=== PATIENT | male | born 1970 | race Caucasian/White ===

== ENCOUNTER → 2021-08-23 14:49 | Outpatient (BNVA) | payer OTHER, SELFPAY | PROVIDERS: Visit Provider Internal Medicine | DX: S33.6XXA Sprain of sacroiliac joint, initial encounter (principal); W17.89XA Other fall from one level to another, initial encounter | CPT/HCPCS: 99203 ==

== ENCOUNTER → 2021-09-05 12:49 | Outpatient (BNVA) | payer OTHER, SELFPAY | PROVIDERS: Visit Provider Internal Medicine | DX: S33.6XXA Sprain of sacroiliac joint, initial encounter (principal); W17.89XA Other fall from one level to another, initial encounter | CPT/HCPCS: 99213 ==

== ENCOUNTER 2021-09-24 10:00 | Outpatient (RCR) | payer OTHER, SELFPAY ==
--- NOTE | 2021-09-10 15:46 | MHC.PT.EP ---
[facility] [place] Office [place] Office [place] [facility] [address] Susan Marie [address] [phone] F: [phone] F: [phone] F: [phone] F: [phone] Physical Therapy Plan of Care Date of Evaluation: Date of Surgery: N/A Diagnosis: L SI joint pain Assessment: Pt is a pleasant 51yo M who presents to PT with L SI/low back pain. He presents to PT with current impairments in pain, decreased lumbar ROM, decreased core stabilization, decreased hip/glute strength, decreased muscle length impaired posture, and poor body mechanics. He is TTP throughout lumbar vertebrae, L lumbar PS, and L QL. He had relief of symptoms with gentle long axis distraction. He is limited functionally by sit<>stand transitions, walking, bending, and laying flat. He is an excellent candidate for skilled PT in order to address current impairments to facilitate return to PLOF. He will be seen 1x/week for 4 weeks and will be reassessed at that time. Frequency and Duration: The patient will be seen 1x/week for 4 weeks Short Term Goals: Pt will be I with HEP to promote self management of symptoms Pt will demonstrate improvements in awareness of body mechanics throughout the day Unionmelt Operator Goals: Pt will achieve full, pain-free ROM all planes of lumbar spine Pt will demonstrate ability to squat and pick object up from floor with proper body mechanics and minimal to no pain Pt will demonstrate improvements in function as evidenced by statistically significant improvement in Modified Oswestry Low Back Pain Disability Questionnaire Treatment Plan: Modalities to reduce pain, spasms and effusion. Manual therapy to restore motion and function. Therapeutic exercise to improve strength and flexibility. Neuromuscular re-education for posture and balance. Therapeutic activities to return to functional activities of daily living. Electronically signed by: Linda Ford, PT, DPT Please sign and return to therapist. Thank you for your referral.
--- NOTE | 2021-09-10 16:16 | MHC.PT.EP ---
[facility] [place] Office [place] Office [place] Office [address] Susan Marie [address] [phone] F: [phone] F: [phone] F: [phone] F: [phone] Physical Therapy Plan of Care Date of Evaluation: Date of Surgery: N/A Diagnosis: L SI joint pain Assessment: Pt is a pleasant 51yo M who presents to PT with L SI/low back pain. He presents to PT with current impairments in pain, decreased lumbar ROM, decreased core stabilization, decreased hip/glute strength, decreased muscle length impaired posture, and poor body mechanics. He is TTP throughout lumbar vertebrae, L lumbar PS, and L QL. He had relief of symptoms with gentle long axis distraction. He is limited functionally by sit<>stand transitions, walking, bending, and laying flat. He is an excellent candidate for skilled PT in order to address current impairments to facilitate return to PLOF. He will be seen 1x/week for 5 weeks and will be reassessed at that time. Frequency and Duration: The patient will be seen 1x/week for 5 weeks Short Term Goals: Pt will be I with HEP to promote self management of symptoms Pt will demonstrate improvements in awareness of body mechanics throughout the day Clerk Checker Goals: Pt will achieve full, pain-free ROM all planes of lumbar spine Pt will demonstrate ability to squat and pick object up from floor with proper body mechanics and minimal to no pain Pt will demonstrate improvements in function as evidenced by statistically significant improvement in Modified Oswestry Low Back Pain Disability Questionnaire Treatment Plan: Modalities to reduce pain, spasms and effusion. Manual therapy to restore motion and function. Therapeutic exercise to improve strength and flexibility. Neuromuscular re-education for posture and balance. Therapeutic activities to return to functional activities of daily living. Electronically signed by: Linda Ford, PT, DPT Please sign and return to therapist. Thank you for your referral.
--- NOTE | 2021-09-25 14:55 | MHC.PT.DC ---
[facility] [place] Office [place] Office [place] Office [address] Susan Marie 140 [facility] [phone] F: [phone] F: [phone] F: [phone] F: [phone] Physical Therapy Discharge Report Diagnosis: L SI joint pain Date of Surgery: N/A Date of Evaluation: 09/10/21 Date of Discharge: 09/25/21 Treatments to Date: 3 Cancellations to Date: 0 No Shows to Date: 0 Discharge Status: Achieved Goals Improved Function Independent with HEP Discharge Summary: Pt attended PT from 09/10/21-09/24/21. He has made excellent progress since SOC. He has had a decrease in pain. He has met his STGs and his LTGs. He is I with HEP. He has improved his score on Modified Oswestry Low Back Pain from 20/50 on initial PT evaluation to 0/50 on D/C. Pt is being D/C from skilled PT at this time. Electronically signed by: Linda Ford, PT, DPT Please sign and return to therapist. Thank you for your referral.
== END 2021-09-25 14:56 | disposition home or self-care (01) ==
LOC: HO.PT 10:00
PROVIDERS: PCP Physician Assistant; Visit Provider Internal Medicine
DX: R10.32 Left lower quadrant pain (principal); M25.552 Pain in left hip
CPT/HCPCS: 97110; 97161; 97530

== ENCOUNTER → 2021-09-24 11:07 | Outpatient (BNVA) | payer OTHER, SELFPAY | PROVIDERS: Visit Provider Internal Medicine | DX: S33.6XXD Sprain of sacroiliac joint, subsequent encounter (principal); W17.89XD Other fall from one level to another, subsequent encounter | CPT/HCPCS: 99213 ==